=== PATIENT | female | born 1945 | race Caucasian/White ===

== ENCOUNTER 2016-10-19 11:50 | Inpatient (IN) | payer OTHER ==
[~2016-10-19] VITALS: Ht 160 cm; Wt 73.5 kg
[~2016-10-19 11:50] MED LIST: CHILDRENS CHEWA81 MG PO; COZAAR100 MG PO; DIGOXIN125 MCG PO; EFFEXOR37.5 MG PO; LEVEMIR100 UNIT/1 SQ; NORVASC5 MG PO; NOVOLOG100 UNIT/1 SC; PRILOSEC20 MG PO; TOPROL XL25 MG PO; ZOCOR20 MG PO
[2016-10-20 08:05] LABS: HEMATOCRIT 30.7 % (34-45); HEMOGLOBIN 9.8 g/dL (11.2-15.7); MEAN CORPUSCULAR HEMOGLOBIN 29.5 pg (27.0-33.0); MEAN CORPUSCULAR HGB CONC 31.9 g/dL (32.0-36.0); MEAN CORPUSCULAR VOLUME 92.5 fL (79-95); MEAN PLATELET VOLUME 9.7 fl (7.5-11.5); RED BLOOD COUNT 3.32 x10_6/uL (3.9-5.2); WHITE BLOOD COUNT 6.4 x10_3/uL (4.0-10.0)
[2016-10-20 08:20] LABS: CALCIUM 8.4 mg/dL (8.7-10.7); CREATININE 1.8 mg/dL (0.6-1.3); POTASSIUM 4.7 mmol/L (3.5-5.1)
[2016-10-24 07:31] LABS: HEMATOCRIT 28.8 % (34-45); HEMOGLOBIN 9.4 g/dL (11.2-15.7); MEAN CORPUSCULAR HEMOGLOBIN 29.8 pg (27.0-33.0); MEAN CORPUSCULAR HGB CONC 32.6 g/dL (32.0-36.0); MEAN CORPUSCULAR VOLUME 91.4 fL (79-95); MEAN PLATELET VOLUME 10.6 fl (7.5-11.5); RED BLOOD COUNT 3.15 x10_6/uL (3.9-5.2); RED CELL DISTRIBUTION WIDTH 13.6 % (11.7-14.4)
[2016-10-24 07:40] LABS: CALCIUM 8.7 mg/dL (8.7-10.7); CREATININE 1.8 mg/dL (0.6-1.3); POTASSIUM 5.1 mmol/L (3.5-5.1)
== END 2016-10-26 12:15 | disposition home or self-care (01) | DRG 690 ==
LOC: SWING 11:50
PROVIDERS: ADMIT Family Medicine
DX: N39.0 Urinary tract infection, site not specified (principal); Z16.24 Resistance to multiple antibiotics; E11.22 Type 2 diabetes mellitus with diabetic chronic kidney disease; I12.9 Hypertensive chronic kidney disease with stage 1 through stage 4 chronic kidney disease, or unspecified chronic kidney disease; N18.3 Chronic kidney disease, stage 3 (moderate); R53.1 Weakness; E86.0 Dehydration; Z89.511 Acquired absence of right leg below knee; R10.30 Lower abdominal pain, unspecified; M54.9 Dorsalgia, unspecified; R42 Dizziness and giddiness; M79.1 Myalgia; Z80.9 Family history of malignant neoplasm, unspecified; Z83.6 Family history of other diseases of the respiratory system; Z82.49 Family history of ischemic heart disease and other diseases of the circulatory system; Z79.82 Long term (current) use of aspirin; Z79.899 Other long term (current) drug therapy; Z88.8 Allergy status to other drugs, medicaments and biological substances
CPT/HCPCS: 36415; 80048; 82962; 99070